=== PATIENT | male | born 2000 | race Hispanic/Latino ===

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

== ENCOUNTER 2020-07-21 11:09 | Emergency (ER) | payer OTHER ==
[~2020-07-21] VITALS: Ht 182.9 cm; Wt 67.6 kg
[2020-07-21] MEDS ORDERED: SODIUM CHLORIDE 0.9% 1000ML 1,000 ML IV STA (11:27)
[2020-07-21 12:04] LABS: BASOPHILS % 0.4 % (0.0-1.0); EOSINOPHILS # (AUTO) 0.1 (0.0-0.4); HEMATOCRIT 42.9 % (38.2-49.6); HEMOGLOBIN 14.3 g/dL (14.0-18.0); LYMPHOCYTES # (AUTO) 2.2 (1.0-3.2); LYMPHOCYTES % 31.7 % (18.0-39.1); MEAN CORPUSCULAR HEMOGLOBIN 31.4 pg (28-32); MEAN CORPUSCULAR HGB CONC 33.3 g/dL (31-35); MEAN CORPUSCULAR VOLUME 94.3 fL (81-99); MONOCYTES # (AUTO) 0.7 (0.2-0.8); MONOCYTES % 10.3 % (4.4-11.3); NEUTROPHILS # (AUTO) 3.8 (2.1-6.9); NEUTROPHILS % 55.5 % (38.7-80.0); PLATELET COUNT 287 x10e3/uL (140-360); RED BLOOD COUNT 4.55 x10e6/uL (4.3-5.7); RED CELL DISTRIBUTION WIDTH 12.3 % (11.7-14.4)
[2020-07-21 12:13] LABS: CLARITY,URINE SL CLOUDY (CLEAR); COLOR,URINE YELLOW (YELLOW); LEUKOCYTE ESTERASE ,URINE SMALL (NEGATIVE); NITRITE,URINE NEGATIVE (NEGATIVE); PROTEIN,URINE DIPSTICK NEGATIVE (NEGATIVE)
[2020-07-21 12:14] LABS: BACTERIA,URINE RARE /HPF; BILIRUBIN,URINE NEGATIVE (NEGATIVE); EPITHELIAL CELLS,URINE FEW /LPF; KETONES,URINE NEGATIVE (NEGATIVE); RBC,URINE 0-5 /HPF (0-5); URINE UROBILINOGEN 0.2 mg/dL (0.2 - 1); WBC,URINE (MAN) 0-5 /HPF (0-5)
[2020-07-21 12:15] LABS: INR 0.97; PARTIAL THROMBOPLASTIN TIME 28.9 seconds (23.8-35.5); PROTHROMBIN TIME 13.4 seconds (11.9-14.5)
[2020-07-21 12:24] LABS: ALANINE AMINOTRANSFERASE 18 IU/L (0-55); ALBUMIN 4.9 g/dL (3.5-5.0); ALBUMIN/GLOBULIN RATIO 1.8 (0.8-2.0); ALKALINE PHOSPHATASE 69 IU/L (40-150); ANION GAP 15.3 mmol/L (8-16); BLOOD UREA NITROGEN 9 mg/dL (7-26); BUN/CREATININE RATIO 8 (6-25); CALCIUM 9.2 mg/dL (8.4-10.2); CARBON DIOXIDE 26 mmol/L (22-29); CHLORIDE 106 mmol/L (98-107); CREATININE, SERUM 1.12 mg/dL (0.72-1.25); EST GLOMERULAR FILTRATION RATE > 60 ML/MIN (60-); GLUCOSE 80 mg/dL (74-118); POTASSIUM 4.3 mmol/L (3.5-5.1); SODIUM 143 mmol/L (136-145)
[2020-07-21 12:33] LABS: SALICYLATE < 5.0 mg/dL (0-30)
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
[2020-07-21 13:10] LABS: AMPHETAMINES SCREEN,URINE NEGATIVE (NEGATIVE); BENZODIAZEPINES SCREEN,URINE POSITIVE (NEGATIVE); PHENCYCLIDINE SCREEN,URINE NEGATIVE (NEGATIVE)
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
--- OUTSIDE RECORDS SUMMARY | 2020-07-22 16:40 | XMS REPORT | Continuity of Care Document ---
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 measurement (mass/volume) 2020-07-21 11:46:00* Test Item Value Reference Range Interpretation Comments Globulin (test code = 84866-1) 2.8 2.3-3.5 [facility] albumin/globulin mass [id number] 11:46:00* Test Item Value Reference Range Interpretation Comments Albumin/Globulin Ratio (test code = 1759-0) 1.8 0.8-2.0 [facility] alkaline phosphatase measurement (enzymatic activity/volume)2020-07-21 11:46:00* Test Item Value Reference Range Interpretation Comments Alkaline Phosphatase (test code = 6768-6) 69 40-150 [facility] acetaminophen measurement by screening method (mass/volume)2020-07-21 11:46:00* Test Item Value Reference Range Interpretation Comments Acetaminophen Level (test code = 22817-5) < 3.0 10-30 [facility] ethanol measurement (mass/volume)2020-07-21 11:46:00* Test Item Value Reference Range Interpretation Comments Ethyl Alcohol Level (test code = 5643-2) < 10.0 0.0-10.0 [facility] salicylates measurement (mass/volume)2020-07-21 11:46:00* Test Item Value Reference Range Interpretation Comments Salicylates Level (test code = 4024-6) < 5.0 0-30 [facility]
== END 2020-07-21 13:32 | disposition home or self-care (01) ==
LOC: ER 12:16
DX: S02.2XXA Fracture of nasal bones, initial encounter for closed fracture (principal); Y04.0XXA Assault by unarmed brawl or fight, initial encounter
CPT/HCPCS: 36415; 70450; 70486; 72125; 80053; 80307; 80320; 80329 ×2; 81001; 85025; 85610; 85730; 99284; J7030